=== PATIENT | female | born 1980 | race African-American/Black ===

== ENCOUNTER 2018-11-30 22:12 | Emergency (ER) | payer OTHER ==
[~2018-11-30] VITALS: Ht 172.7 cm; Wt 99.8 kg
--- OUTSIDE RECORDS SUMMARY | 2018-11-30 22:16 | XMS REPORT | Summary of Care ---
Author Organization Unknown Address Unknown Phone Unavailable Encounter MORENA Hobbs(BISHOP) [id number] Date(s): 09/18/13 - 09/18/[address] Discharge Diagnosis: Nausea Discharge Diagnosis: Abdominal pain Discharge Disposition: Home Physician Attending: Timmy Contreras MD Reason for Visit SURGERY ON TUESDAY AND FEELING SICK Vital Signs 1 2 3 Most recent to oldest [Reference Range]: 167.64 cm (09/18/13 10:05 AM) Height 98.8 DegF (09/18/13 5:24 PM) 97.7 DegF (09/18/13 1:35 PM) 98.5 DegF (09/18/13 10:05 AM) Temperature Oral [96.4-99.1 DegF] 112 mmHg (09/18/13 5:24 PM) 122 mmHg (09/18/13 1:35 PM) 149 mmHg *HI* (09/18/13 10:24 AM) Systolic Blood Pressure [90-140 mmHg] 62 mmHg (09/18/13 5:24 PM) 72 mmHg (09/18/13 1:35 PM) 72 mmHg (09/18/13 10:24 AM) Diastolic Blood Pressure [60-90 mmHg] 21 BRMIN *HI* (09/18/13 5:24 PM) 20 BRMIN (09/18/13 1:35 PM) 24 BRMIN *HI* (09/18/13 10:24 AM) Respiratory Rate [14-20 BRMIN] 63 bpm (09/18/13 5:24 PM) 79 bpm (09/18/13 1:35 PM) 90 bpm (09/18/13 10:24 AM) Peripheral Pulse Rate [60-100 bpm] 127.273 kg (09/18/13 10:05 AM) Weight 45.29 m2 (09/18/13 10:05 AM) Body Mass Index Problem List Condition Effective Dates Status Health Status Informant Acid Active reflux(Confirmed) Anxiety(Confirmed) Active Allergies, Adverse Reactions, Alerts Substance Reaction Severity Status NKDA Active Medications Lactated Ringers (Bolus) IV - - 1,000 mL, 1,000 ml/hr, Infuse Over: 1 hr, Route: IV, ONCE, Priority: STAT, Dosin g Weight 127.273 kg, Start date: 09/18/13 10:25:00, Duration: 1 doses or times, Stop date: 09/18/13 10:25:00 Start Date: 09/18/13 Stop Date: 09/18/13 Status: Completed ondansetron 4 mg, Route: IVP, Drug form: INJ, ONCE, Dosing Weight 127.273, kg, Priority: STA T, Start date: 09/18/13 10:25:00, Stop date: 09/18/13 10:25:00 Start Date: 09/18/13 Stop Date: 09/18/13 Status: Completed Sodium Chloride 0.9% (Bolus) IV - - 1,000 mL, 1,000 ml/hr, Infuse Over: 1 hr, Route: IV, 1,000, Drug form: INJ, ONCE , Priority: STAT, Dosing Weight 127.273 kg, Start date: 09/18/13 12:47:00, Durat ion: 1 doses or times, Stop date: 09/18/13 12:47:00 Start Date: 09/18/13 Stop Date: 09/18/13 Status: Completed Results ELECTROLYTES Most recent to 1 2 oldest [Reference Range]: Sodium Lvl [135-145 139 mEq/L mEq/L] (09/18/13 10:20 AM) Potassium Lvl 3.6 mEq/L [3.5-5.1 mEq/L] (09/18/13 10:20 AM) Chloride Lvl [95-109 102 mEq/L mEq/L] (09/18/13 10:20 AM) CO2 [24-32 mEq/L] 24 mEq/L (09/18/13 10:20 AM) AGAP [10.0-20.0 16.6 mEq/L mEq/L] (09/18/13 10:20 AM) CHEM PANEL Most recent to 1 2 oldest [Reference Range]: Creatinine Lvl 0.9 mg/dL [0.5-1.4 mg/dL] (09/18/13 10:20 AM) eGFR 96 mL/min/1.73m2 1 *NA* (09/18/13 10:20 AM) BUN [7-22 mg/dL] 12 mg/dL (09/18/13 10:20 AM) B/C Ratio [6-25] 13 (09/18/13 10:20 AM) Glucose Lvl [70-99 120 mg/dL 2 mg/dL] *HI* (09/18/13 10:20 AM) Total Protein 8.1 g/dL [6.4-8.4 g/dL] (09/18/13 10:20 AM) Albumin Lvl [3.5-5.0 3.7 g/dL g/dL] (09/18/13 10:20 AM) Globulin [2.0-4.0 4.4 g/dL g/dL] *HI* (09/18/13 10:20 AM) A/G Ratio [0.7-1.6] 0.8 (09/18/13 10:20 AM) Calcium Lvl 8.8 mg/dL [8.5-10.5 mg/dL] (09/18/13 10:20 AM) ALT [0-65 unit/L] 70 unit/L *HI* (09/18/13 10:20 AM) AST [0-37 unit/L] 32 unit/L (09/18/13 10:20 AM) Alk Phos [39-136 79 unit/L unit/L] (09/18/13 10:20 AM) Bili Total [0.2-1.3 0.4 mg/dL mg/dL] (09/18/13 10:20 AM) Lactic Acid Lvl 0.6 mMol/L 3.5 mMol/L [0.5-2.2 mMol/L] (09/18/13 3:35 PM) *HI* (09/18/13 10:20 AM) 1Result Comment: The eGFR is calculated using the CKD-EPI formula. In most young, healthy individuals the eGFR will be >90 mL/min/1.73m2. The eGFR declines with age. An eGFR of 60-89 may be normal in some populations, particularly the elderly, for whom the CKD-EPI formula has not been extensively validated. Use of the eGFR is not recommended in the following populations: Individuals with unstable creatinine concentrations, including patients and those with serious co-morbid conditions. Patients with extremes in muscle mass or diet. The data above are obtained from the National Kidney Disease Education Program ( NKDEP) which additionally recommends that when the eGFR is used in patients with extremes of body mass index for purposes of drug dosing, the eGFR should be mul tiplied by the estimated BMI. 2Interpretive Data: Adult reference range values reflect the clinical guidelines of the [place] [employer]. URINE CHEM Most recent to 1 2 oldest [Reference Range]: U Preg [Negative] Negative (09/18/13 11:35 AM) URINE AND STOOL Most recent to 1 2 oldest [Reference Range]: UA Turbidity [Clear] Slight Cloudy (09/18/13 11:35 AM) UA Color [Yellow] Yellow *NA* (09/18/13:35 AM) UA pH [5.0-8.0] 8.0 (09/18/13 11:35 AM) UA Spec Grav 1.015 [<=1.030] (09/18/13 11:35 AM) UA Glucose Negative [Negative] (09/18/13 11:35 AM) UA Blood [Negative] Negative (09/18/13 11:35 AM) UA Ketones Negative [Negative] *NA* (09/18/13 11:35 AM) UA Protein Trace [Negative] *ABN* (09/18/13 11:35 AM) UA Urobilinogen 0.2 EU/dL [0.1-1.0 EU/dL] (09/18/13 11:35 AM) UA Bili [Negative] Negative *NA* (09/18/13 11:35 AM) UA Leuk Est Negative [Negative] (09/18/13 11:35 AM) UA Nitrite Negative [Negative] (09/18/13 11:35 AM) UA WBC [None Seen 0-2 /HPF /HPF] (09/18/13 11:35 AM) UA RBC [0-2 /HPF] 0-2 /HPF (09/18/13 11:35 AM) UA Bacteria [None Occasional /HPF Seen /HPF] (09/18/13 11:35 AM) UA Sq Epi [Few /LPF] Moderate /LPF *ABN* (09/18/13 11:35 AM) UA Amorph Izabella [None Occasional /HPF Seen /HPF] *ABN* (09/18/13 11:35 AM) UA Mucus [None Seen Few /LPF /LPF] (09/18/13 11:35 AM) Micro? Performed (09/18/13 11:35 AM) IMMUNOLOGY Most recent to 1 2 oldest [Reference Range]: CDC HIV 4th GEN Negative [Negative] (09/18/13 10:20 AM) HEMATOLOGY Most recent to 1 2 oldest [Reference Range]: WBC [3.7-10.4 K/CMM] 6.1 K/CMM (09/18/13 10:20 AM) RBC [4.20-5.40 4.02 M/CMM M/CMM] *LOW* (09/18/13 10:20 AM) Hgb [12.0-16.0 g/dL] 11.2 g/dL *LOW* (09/18/13 10:20 AM) Hct [36.0-48.0 %] 33.5 % *LOW* (09/18/13 10:20 AM) MCV [81.0-99.0 fL] 83.3 fL (09/18/13 10:20 AM) MCH [27.0-31.0 pg] 27.8 pg (09/18/13 10:20 AM) MCHC [32.0-36.0 33.3 g/dL g/dL] (09/18/13 10:20 AM) RDW [11.5-14.5 %] 12.2 % (09/18/13 10:20 AM) Platelet [133-450 385 K/CMM K/CMM] (09/18/13 10:20 AM) MPV [7.4-10.4 fL] 8.0 fL (09/18/13 10:20 AM) Segs [45.0-75.0 %] 55.3 % (09/18/13 10:20 AM) Lymphocytes 34.7 % [20.0-40.0 %] (09/18/13 10:20 AM) Monocytes [2.0-12.0 8.7 % %] (09/18/13 10:20 AM) Eosinophils [0.0-4.0 0.9 % %] (09/18/13 10:20 AM) Basophils [0.0-1.0 0.4 % %] (09/18/13 10:20 AM) Segs-Bands # 3.4 K/CMM [1.5-8.1 K/CMM] (09/18/13 10:20 AM) Lymphocytes # 2.1 K/CMM [1.0-5.5 K/CMM] (09/18/13 10:20 AM) Monocytes # [0.0-0.8 0.5 K/CMM K/CMM] (09/18/13 10:20 AM) Eosinophils # 0.1 K/CMM [0.0-0.5 K/CMM] (09/18/13 10:20 AM) Basophils # [0.0-0.2 0.0 K/CMM K/CMM] (09/18/13 10:20 AM) Medications Administered During Your Visit No data available for this section Immunizations No data available for this section Procedures Procedure Type Body Site Date of Procedure Related Diagnosis Repair of diaphragmatic hiatal hernia Social History Social History Type Response Smoking Status Never smoker, Exposure to Tobacco Smoke None, Cigarette Smoking Last 365 Days No, Reg Smoking Cessation Counseling No Assessment and Plan Extracted from: Title: General Surgery Consultation Author: Attila Owens MD Date: 09/18/13 [employer] Surgeon: Aditya Head Referring Physician: Tonya Soriano MD (Emergency Medicine) Date of Consultation: 09/18/13 Time of Consultation: 13:00 Consult Regarding: Abdominal pain Chief Complaint: "Overall sick feeling, abdominal pain" History of Present Illness: 33 y/o AAF w PMH morbid obesity, GERD, anxiety, umbilical hernia s/p laparoscopic umbilical hernia repair with mesh on 09/13/13 presents with abdominal pain. She reports that her pain is located in supraumbilical area and radiates diffusely. She says that the pain started acutely this morning while at rest, described as pressure "like before surgery." Pain worsened with palpation, alleviated by rest . Pain is associated with nausea, lightheadedness/dizziness, mild dyspnea, tingling sensation in her LUE. She reports tolerating regular diet and having normal, nonbloody bowel movements (last BM 09/17/13). She reports symptoms are similar to previous acute anxiety episodes. She has been taking norco and docusate at home.She denies any fevers, vomiting, diarrhea, constipation, melena, dysuria, hematuria, chest pain. Past Medical History: morbid obesity, GERD, anxiety, umbilical hernia s/p laparoscopic umbilical hernia repair with mesh on 09/13/13 Past Surgical History: Laparoscopic umbilical hernia repair with mesh on 09/13/13 Lysis of adhesions Multiple C-sections Allergies:NKDA Medications: [place], docusate Family History: non-contributory Social History: Denies ETOH, tobacco, illicit drugs. Lives with children, children's father. Review of Systems Constitutional symptoms: Denies fever, weight loss. +fatigue HEENT: Denies nasal drainage, sore throat, visual changes Cardiovascular: Denies chest pain, palpitations. Respiratory: Denies cough, wheezing. + difficulty breathing in AM Gastrointestinal: Denies decreased feeding/appetite, vomiting, diarrhea, constipation, blood in the stools. + abdominal pain, + nausea Genitourinary: Denies dysuria, hematuria, decreased or absent urine output Musculoskeletal: Denies joint swelling, tenderness, weakness. Skin: Denies rashes, dryness, itching Neurological: Denies seizures, loss of consciousness, numbness, weakness. + tingling sensation LUE Psychiatric: Denies mood changes Endocrine: Denies changes in body habitus, weight gain Hematologic / lymphatic: Denies bleeding, jaundice, swollen glands Physical Exam Vital Signs: Weight: 127.3 kg VitalsTmp(F)Tmp(C)[id number] 09/18 13:[id number]/72---[id number]------ 09/18 10:24 14972---[id number]------ 09/18 10:0598.536.49vfno37/68------[id number]------ 24 Hr Tmax: 98.5F (36.94c) at 09/18 10:0524 Hr Tmin: 97.7F (36.50c) at 09/18 13:35 General appearance: Well-developed, well-nourished and in no acute distress Skin: Integument intact without rashes HEENT: normocephalic, Pupils equal and reactive to light and accommodation, neck without masses or lymphadenopathy Heart:regular rate and rhythm Vascular exam: 2+ pulses throughout with good capillary refill and no evidence of venous insufficiency Lungs: clear to auscultation bilaterally Abdomen: soft, non-distended without palpable masses. + TTP supraumbilical area. + guarding. No rebound tenderness. No CVA tenderness. Lap incisions c/di Genitourinary: anatomy within normal limits for age Musculoskeletal: no limitation of passive/active motion Neurological: appropriately interactive; CN II-XII intact Pertinent Laboratory Evaluation 36hr Labs 09/18 1135 U PregNegative UA ColorYellow UA TurbiditySlight Cloudy UA Spec Grav1.015 UA pH8.0 UA ProteinTrace UA GlucoseNegative UA KetonesNegative UA BiliNegative UA BloodNegative UA Urobilinogen0.2 UA NitriteNegative UA Leuk EstNegative UA RBC0-2 UA WBC0-2 UA BacteriaOccasional UA MucusFew UA Amorph CrysOccasional UA Sq EpiModerate Micro?Performed Temp Ven37.0 pH Ven7.47 H pCO2 Ven31 L pO2 Ven22 HCO3 Ven23 BE Ven0 O2 Sat Ven42.6 Sodium Ado645 Potassium Lvl3.6 Chloride Epe663 CO224 AGAP16.6 Glucose Qij912 H Creatinine Lvl0.9 BUN12 B/C Ratio13 Total Protein8.1 Albumin Lvl3.7 Globulin4.4 H A/G Ratio0.8 Calcium Lvl8.8 ALT70 H AST32 Alk Phos79 Bili Total0.4 eGFR96 Lactic Acid Lvl3.5 H -> 09/18 1535 Lactic Acid Lvl0.6 WBC6.1 RBC4.02 L Hgb11.2 L Hct33.5 L MCV83.3 MCH27.8 MCHC33.3 RDW12.2 Pmtscabb355 MPV8.0 Segs55.3 Monocytes8.7 Qlkewpydqch31.7 Eosinophils0.9 Basophils0.4 Segs-Bands #3.4 Lymphocytes #2.1 Monocytes #0.5 Eosinophils #0.1 Basophils #0.0 Diagnostic Imaging: none Assessment: 33 y/o AAF w PMH morbid obesity, GERD, anxiety, umbilical hernia s/p laparoscopic umbilical hernia repair with mesh on 09/13/13 presents with abdominal pain, nausea, dizziness, dyspnea, LUE tinging sensation x 1d. Plan: -After further discussion w pt, pt's symptoms similar to previous acute anxiety episodes. -Abdominal pain: Abdominal pain resolving, w/o pain medication. Likely incisional pain, no hernia noted, no signs of infection. Cont norco, docusate. Lactate significantly improved after fluid resuscitation, lactate likely 2/2 dehydration. Okay to discharge if tolerating PO diet. -Pt can f/u as scheduled in clinic w Dr. Head. Please call to confirm appt. Plan discussed with Surgery Attending Dr. Head, who agrees w the plan.
--- OUTSIDE RECORDS SUMMARY | 2018-11-30 22:16 | XMS REPORT | Summary of Care ---
Author Organization Unknown Address Unknown Phone Unavailable Encounter HQ Encntr_beny(BISHOP) [id number] Date(s): 03/01/14 - 03/01/14 [facility] Outpatient Imaging [address] Discharge Disposition: Home Physician Attending: Estefani Pratt MD Reason for Visit 584.09 - ABDMNAL PAIN OT Problem List Condition Effective Dates Status Health Status Informant Acid Active reflux(Confirmed) Anxiety(Confirmed) Active Allergies, Adverse Reactions, Alerts Substance Reaction Severity Status NKDA Active Medications No data available for this section Medications Administered During Your Visit No data available for this section Immunizations No data available for this section Social History Social History Type Response Smoking Status Never smoker, Exposure to Tobacco Smoke None, Cigarette Smoking Last 365 Days No, Reg Smoking Cessation Counseling No
--- OUTSIDE RECORDS SUMMARY | 2018-11-30 22:16 | XMS REPORT | Summary of Care ---
Author Organization Unknown Address Unknown Phone Unavailable Encounter HQ Delano_beny(BISHOP) [id number] Date(s): 09/13/13 - 09/13/13 [facility] [address] Discharge Disposition: Home Physician Attending: Aditya Head Physician Admitting: Aditya Head Physician_Referring: Aditya Head Reason for Visit UMBILICAL HERNIA Vital Signs 1 2 3 Most recent to oldest [Reference Range]: 167.64 cm (09/03/13 2:59 PM) Height 117 mmHg (09/13/13 11:12 AM) 115 mmHg (09/13/13 10:45 AM) 119 mmHg (09/13/13 10:30 AM) Systolic Blood Pressure [90-140 mmHg] 81 mmHg (09/13/13 11:12 AM) 53 mmHg *LOW* (09/13/13 10:45 AM) 60 mmHg (09/13/13 10:30 AM) Diastolic Blood Pressure [60-90 mmHg] 22 BRMIN *HI* (09/13/13 11:12 AM) 34 BRMIN *HI* (09/13/13 10:45 AM) 20 BRMIN (09/13/13 10:30 AM) Respiratory Rate [14-20 BRMIN] 74 bpm (09/13/13 11:12 AM) 67 bpm (09/13/13 7:10 AM) Peripheral Pulse Rate [60-100 bpm] 129.545 kg (09/13/13 7:10 AM) Weight 46.1 m2 (09/13/13 7:10 AM) Body Mass Index Problem List Condition Effective Dates Status Health Status Informant Acid Active reflux(Confirmed) Allergies, Adverse Reactions, Alerts Substance Reaction Severity Status NKDA Active Medications Benadryl 12.5 mg, Route: IV, Drug form: INJ, ONCE, Dosing Weight 129.545, kg, PRN Itching , Start date: 09/13/13 13:03:00, Stop date: 10/13/13 13:02:00, > 40 kg; Pediatric Dosing Special Instructions: > 40 kg; Pediatric Dosing Start Date: 09/13/13 Stop Date: 09/13/13 Status: Completed Benadryl 12.5 mg, Route: IV, Drug form: INJ, ONCE, Dosing Weight 129.545, kg, PRN Itching , Start date: 09/13/13 11:39:00, Stop date: 10/13/13 11:38:00, > 40 kg; Pediatric Dosing Special Instructions: > 40 kg; Pediatric Dosing Start Date: 09/13/13 Stop Date: 09/13/13 Status: Completed bupivacaine liposome 20 mL, Route: InFILtration(local), Drug Form: INJ, ONCE, Start date: 09/13/13 9: 30:00, Stop date: 09/13/13 9:30:00 Notes: (Same as: Exparel) NOT FOR IV use Postoperative analgesia: Infi ltration (local): Dose is based on surgical site and volume required to cover th e area (in general, the maximum total dose is 266 mg).Bunionectomy: 7 mL into th e tissues surrounding the osteotomy and 1 mL into the subcutaneous tissue of the surgical site (total dose=8 mL [106 mg])Hemorrhoidectomy: 30 mL (20 mL vial dil uted with 10 mL NS) divided and administered as 6 injections of 5 mL each (total dose=30 mL [266 mg]) Start Date: 09/13/13 Stop Date: 09/13/13 Status: Completed docusate sodium 100 mg oral capsule 100 mg=0, PO, Daily, Constipation, # 20 cap, 0 Refill(s) Start Date: 09/13/13 Status: Ordered flumazenil 0.2 mg, 2 mL, Route: IVP, Drug form: INJ, PRN, Dosing Weight 129.545, kg, PRN Be nzodiazepine Reversal, Initial dose, Start date: 09/13/13 10:14:00, Duration: 30 day, Stop date: 10/13/13 10:13:00 Notes: (Same as: Romazicon) Start Date: 09/13/13 Stop Date: 09/13/13 Status: Discontinued heparin 5,000 unit, 1 mL, Route: SUB-Q, Drug form: INJ, PRE OP, Start date: 09/12/13 22: 00:00, Duration: 1 day, Stop date: 09/13/13 21:59:00 Notes: porcine heparin Start Date: 09/12/13 Stop Date: 09/13/13 Status: Completed hydromorphone 0.5 mg, 0.25 mL, Route: IVP, Drug form: INJ, Q5Min, Dosing Weight 129.545, kg, P RN Pain Score 7-10, Start date: 09/13/13 10:14:00, Duration: 4 doses or times, S top date: 09/14/13 0:00:00 Notes: Same as: Dilaudid Start Date: 09/13/13 Stop Date: 09/13/13 Status: Discontinued labetalol 10 mg, 2 mL, Route: IVP, Drug form: INJ, Q5Min, Dosing Weight 129.545, kg, PRN E levated BP, Start date: 09/13/13 10:14:00, Duration: 5 doses or times, Stop date : 09/14/13 0:00:00 Start Date: 09/13/13 Stop Date: 09/13/13 Status: Discontinued Mefoxin 2 gm, Route: IVPB, Drug form: INJ, PRE OP, Start date: 09/12/13 22:00:00, Durati on: 1 day, Stop date: 09/13/13 21:59:00 Notes: (Same As: Mefoxin) Start Date: 09/12/13 Stop Date: 09/13/13 Status: Completed naloxone 0.04 mg, 0.1 mL, Route: IVP, Drug form: INJ, Q2MIN, Dosing Weight 129.545, kg, P RN Narcotic Reversal, Start date: 09/13/13 10:14:00, Duration: 8 doses or times, Stop date: 09/14/13 0:00:00 Notes: Same as Narcan Start Date: 09/13/13 Stop Date: 09/13/13 Status: Discontinued [place] 10/325 oral tablet 1 tab, PO, Q6H, for pain, # 30 tab, 0 Refill(s) Start Date: 09/13/13 Status: Ordered Ofirmev 1,000 mg, 100 mL, Route: IV, Drug form: INJ, PRE OP, Start date: 09/12/13 22:00: 00, Duration: 1 day, Stop date: 09/13/13 21:59:00 Notes: Infuse over 15 minutes Do not exceed 4gm/day of acetaminophen Start Date: 09/12/13 Stop Date: 09/14/13 Status: Discontinued ondansetron 4 mg, 2 mL, Route: IVP, Drug form: INJ, ONCE, Dosing Weight 129.545, kg, PRN Ed sea & Vomiting, Start date: 09/13/13 10:14:00 Notes: (Same as: Zofran) Start Date: 09/13/13 Stop Date: 09/13/13 Status: Completed pantoprazole 40 mg, PO, Daily, # 30 tab, 0 Refill(s) Start Date: 09/03/13 Stop Date: 10/03/13 Status: Ordered ranitidine 0 Refill(s) Start Date: 09/03/13 Status: Ordered scopolamine 1 patch, Route: TOP, Drug form: ERFILM, PRE OP, Start date: 09/12/13 22:00:00, D uration: 1 day, Stop date: 09/13/13 21:59:00 Notes: Change patch every 72 hours (Same as: Transderm-Scop) Start Date: 09/12/13 Stop Date: 09/13/13 Status: Completed Results ELECTROLYTES Most recent to 1 oldest [Reference Range]: Sodium Lvl [135-145 144 mEq/L mEq/L] (09/13/13 8:00 AM) Potassium Lvl 3.8 mEq/L [3.5-5.1 mEq/L] (09/13/13 8:00 AM) Chloride Lvl [95-109 110 mEq/L mEq/L] *HI* (09/13/13 8:00 AM) CO2 [24-32 mEq/L] 26 mEq/L (09/13/13 8:00 AM) AGAP [10.0-20.0 11.8 mEq/L mEq/L] (09/13/13 8:00 AM) CHEM PANEL Most recent to 1 oldest [Reference Range]: Creatinine Lvl 0.8 mg/dL [0.5-1.4 mg/dL] (09/13/13 8:00 AM) eGFR 110 mL/min/1.73m2 1 *NA* (09/13/13 8:00 AM) BUN [7-22 mg/dL] 11 mg/dL (09/13/13 8:00 AM) B/C Ratio [6-25] 14 (09/13/13 8:00 AM) Glucose Lvl [70-99 84 mg/dL 2 mg/dL] (09/13/13 8:00 AM) Total Protein 7.7 g/dL [6.4-8.4 g/dL] (09/13/13 8:00 AM) Albumin Lvl [3.5-5.0 3.7 g/dL g/dL] (09/13/13 8:00 AM) Globulin [2.0-4.0 4.0 g/dL g/dL] (09/13/13 8:00 AM) A/G Ratio [0.7-1.6] 0.9 (09/13/13 8:00 AM) Calcium Lvl 8.7 mg/dL [8.5-10.5 mg/dL] (09/13/13 8:00 AM) ALT [0-65 unit/L] 25 unit/L (09/13/13 8:00 AM) AST [0-37 unit/L] 14 unit/L (09/13/13 8:00 AM) Alk Phos [39-136 74 unit/L unit/L] (09/13/13 8:00 AM) Bili Total [0.2-1.3 0.4 mg/dL mg/dL] (09/13/13 8:00 AM) 1Result Comment: The eGFR is calculated [...] values reflect the clinical guidelines of the [place] [employer]. URINE CHEM Most recent to 1 oldest [Reference Range]: U Preg [Negative] Negative (09/13/13 7:36 AM) HEMATOLOGY Most recent to 1 oldest [Reference Range]: WBC [3.7-10.4 K/CMM] 5.5 K/CMM (09/13/13 7:37 AM) RBC [4.20-5.40 3.96 M/CMM M/CMM] *LOW* (09/13/13 7:37 AM) Hgb [12.0-16.0 g/dL] 11.2 g/dL *LOW* (09/13/13 7:37 AM) Hct [36.0-48.0 %] 33.0 % *LOW* (09/13/13 7:37 AM) MCV [81.0-99.0 fL] 83.4 fL (09/13/13 7:37 AM) MCH [27.0-31.0 pg] 28.2 pg (09/13/13 7:37 AM) MCHC [32.0-36.0 33.9 g/dL g/dL] (09/13/13 7:37 AM) RDW [11.5-14.5 %] 12.4 % (09/13/13 7:37 AM) Platelet [133-450 330 K/CMM K/CMM] (09/13/13 7:37 AM) MPV [7.4-10.4 fL] 8.0 fL (09/13/13 7:37 AM) Segs [45.0-75.0 %] 41.5 % *LOW* (09/13/13 7:37 AM) Lymphocytes 46.8 % [20.0-40.0 %] *HI* (09/13/13 7:37 AM) Monocytes [2.0-12.0 9.7 % %] (09/13/13 7:37 AM) Eosinophils [0.0-4.0 1.4 % %] (4/17/14 7:37 AM) Basophils [0.0-1.0 0.6 % %] (09/13/13 7:37 AM) Segs-Bands # 2.3 K/CMM [1.5-8.1 K/CMM] (09/13/13 7:37 AM) Lymphocytes # 2.6 K/CMM [1.0-5.5 K/CMM] (09/13/13 7:37 AM) Monocytes # [0.0-0.8 0.5 K/CMM K/CMM] (09/13/13 7:37 AM) Eosinophils # 0.1 K/CMM [0.0-0.5 K/CMM] (09/13/13 7:37 AM) Basophils # [0.0-0.2 0.0 K/CMM K/CMM] (09/13/13 7:37 AM) Medications Administered During Your Visit No data available for this section Immunizations No data available for this section
--- OUTSIDE RECORDS SUMMARY | 2018-11-30 22:16 | XMS REPORT | Continuity of Care Document ---
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 Information [employer] Unavailable Unavailable Problems Problem Status Onset Date Classification Date Reported Comments Source Z01.818 - ENCOUNTER FOR OTHER PREPROCEDU Active 09/15/2016 [facility] Discharge Diagnosis: Nausea 09/18/2013 09/20/2013 [facility] Discharge Diagnosis: Abdominal pain 09/18/2013 09/20/2013 [facility] SURGERY ON TUESDAY AND FEELING SICK Active 09/18/2013 [facility] UMBILICAL HERNIA Active 08/24/2013 [facility] Acid reflux Active Problem 09/18/2016 [facility], [facility] Anxiety Active Problem 09/18/2016 [facility], ERROL [facility] UMBILICAL HERNIA Active [facility] Medications Medication Details Route Status Patient Instructions Ordering Provider Order Date Source Sodium Chloride 0.154 MEQ/ML Injectable Solution 1,000 mL, 1,000 ml/hr, Infuse Over: 1 hr, Route: IV, 1,000, Drug form: INJ, ONCE, Priority: STAT, Dosing Weight 127.273 kg, Start date: 09/18/13 12:47:00, Duration: 1 doses or times, Stop date: 09/18/13 12:47:00 Inactive 09/18/2013 [facility] Calcium Chloride 0.0014 MEQ/ML / Potassium Chloride 0.004 MEQ/ML / Sodium Chloride 0.103 MEQ/ML / Sodium Lactate 0.028 MEQ/ML Injectable Solution 1,000 mL, 1,000 ml/hr, Infuse Over: 1 hr, Route: IV, ONCE, Priority: STAT, Dosing Weight 127.273 kg, Start date: 09/18/13 10:25:00, Duration: 1 doses or times, Stop date: 09/18/13 10:25:00 Inactive 09/18/2013 [facility] Ondansetron 4 mg, Route: IVP, Drug form: INJ, ONCE, Dosing Weight 127.273, kg, Priority: STAT, Start date: 09/18/13 10:25:00, Stop date: 09/18/13 10:25:00 Inactive 09/18/2013 [facility] Benadryl 12.5 mg, Route: IV, Drug form: INJ, ONCE, Dosing Weight 129.545, kg, PRN Itching, Start date: 09/13/13 13:03:00, Stop date: 10/13/13 13:02:00, > 40 kg; Pediatric DosingSpecial Instructions: > 40 kg; Pediatric Dosing Inactive 09/13/2013 [facility] Benadryl 12.5 mg, Route: IV, Drug form: INJ, ONCE, Dosing Weight 129.545, kg, PRN Itching, Start date: 09/13/13 11:39:00, Stop date: 10/13/13 11:38:00, > 40 kg; Pediatric DosingSpecial Instructions: > 40 kg; Pediatric Dosing Inactive 09/13/2013 [facility] Ondansetron 4 mg, 2 mL, Route: IVP, Drug form: INJ, ONCE, Dosing Weight 129.545, kg, PRN Nausea & Vomiting, Start date: 09/13/13 10:14:00Notes: (Same as: Zofran) Inactive 09/13/2013 [facility] Flumazenil 0.2 mg, 2 mL, Route: IVP, Drug form: INJ, PRN, Dosing Weight 129.545, kg, PRN Benzodiazepine Reversal, Initial dose, Start date: 09/13/13 10:14:00, Duration: 30 day, Stop date: 10/13/13 10:13:00Notes: (Same as: Romazicon) Inactive 09/13/2013 [facility] Hydromorphone 0.5 mg, 0.25 mL, Route: IVP, Drug form: INJ, Q5Min, Dosing Weight 129.545, kg, PRN Pain Score 7-10, Start date: 09/13/13 10:14:00, Duration: 4 doses or times, Stop date: 09/14/13 0:00:00Notes: Same as: Dilaudid Inactive 09/13/2013 [facility] Naloxone 0.04 mg, 0.1 mL, Route: IVP, Drug form: INJ, Q2MIN, Dosing Weight 129.545, kg, PRN Narcotic Reversal, Start date: 09/13/13 10:14:00, Duration: 8 doses or times, Stop date: 09/14/13 0:00:00Notes: Same as Narcan Inactive 09/13/2013 [facility] Labetalol 10 mg, 2 mL, Route: IVP, Drug form: INJ, Q5Min, Dosing Weight 129.545, kg, PRN Elevated BP, Start date: 09/13/13 10:14:00, Duration: 5 doses or times, Stop date: 09/14/13 0:00:00 Inactive 09/13/2013 [facility] Docusate Sodium 100 MG Oral Capsule 100 mg=0, PO, Daily, Constipation, # 20 cap, 0 Refill(s) Active 09/13/2013 [facility] Acetaminophen 325 MG / Hydrocodone Bitartrate 10 MG Oral Tablet [[place] 10/325] 1 tab, PO, Q6H, for pain, # 30 tab, 0 Refill(s) Active 09/13/2013 [facility] bupivacaine liposome 20 mL, Route: InFILtration(local), Drug Form: INJ, ONCE, Start date: 09/13/13 9:30:00, Stop date: 09/13/13 9:30:00Notes: (Same as: Exparel) NOT FOR IV use Postoperative analgesia: Infiltration (local): Dose is based on surgical site and volume required to cover the area (in general, the maximum total dose is 266 mg). Bunionectomy: 7 mL into the tissues surrounding the osteotomy and 1 mL into the subcutaneous tissue of the surgical site (total dose=8 mL [106 mg]) Hemorrhoidectomy: 30 mL (20 mL vial diluted with 10 mL NS) divided and administered as 6 injections of 5 mL each (total dose=30 mL [266 mg]) Inactive 09/13/2013 [facility] scopolamine 1 patch, Route: TOP, Drug form: ERFILM, PRE OP, Start date: 09/12/13 22:00:00, Duration: 1 day, Stop date: 09/13/13 21:59:00Notes: Change patch every 72 hours (Same as: Transderm-Scop) No Longer Active 09/13/2013 [facility] heparin 5,000 unit, 1 mL, Route: SUB-Q, Drug form: INJ, PRE OP, Start date: 09/12/13 22:00:00, Duration: 1 day, Stop date: 09/13/13 21:59:00Notes: porcine heparin No Longer Active 09/13/2013 [facility] Mefoxin 2 gm, Route: IVPB, Drug form: INJ, PRE OP, Start date: 09/12/13 22:00:00, Duration: 1 day, Stop date: 09/13/13 21:59:00Notes: (Same As: Mefoxin) No Longer Active 09/13/2013 [facility] Ofirmev 1,000 mg, 100 mL, Route: IV, Drug form: INJ, PRE OP, Start date: 09/12/13 22:00:00, Duration: 1 day, Stop date: 09/13/13 21:59:00Notes: Infuse over 15 minutes Do not exceed 4gm/day of acetaminophen No Longer Active 09/13/2013 [facility] Ranitidine 0 Refill(s) Active 09/03/2013 [facility] pantoprazole 40 mg, PO, Daily, # 30 tab, 0 Refill(s) Active 09/03/2013 [facility] Allergies, Adverse Reactions, Alerts No Known Medication Allergies Immunizations No Data Provided for This Section Results Order Name Results Value Reference Range Date Interpretation Comments Source CHEM PANEL Lactic Acid Lvl 0.6 0.5 - 2.2 09/18/2013 [facility] URINE AND STOOL UA Leuk Est Negative (09/18/13 11:35 AM) Negative 09/18/2013 [facility] URINE AND STOOL UA WBC 0-2 /HPF None Seen /HPF 09/18/2013 [facility] URINE AND STOOL UA Sq Epi Moderate /LPF Few /LPF 09/18/2013 [facility] URINE AND STOOL Micro? Performed (09/18/13 11:35 AM) 09/18/2013 [facility] URINE AND STOOL UA RBC 0-2 /HPF 0 - 2 09/18/2013 [facility] URINE AND STOOL UA Amorph Izabella Occasional /HPF None Seen /HPF 09/18/2013 [facility] URINE AND STOOL UA Mucus Few /LPF None Seen /LPF 09/18/2013 [facility] URINE AND STOOL UA Bacteria Occasional /HPF None Seen /HPF 09/18/2013 [facility] URINE AND STOOL UA Protein Trace *ABN* (09/18/13 11:35 AM) Negative 09/18/2013 [facility] URINE AND STOOL UA Ketones Negative *NA* (09/18/13 11:35 AM) Negative 09/18/2013 [facility] URINE AND STOOL UA Nitrite Negative (09/18/13 11:35 AM) Negative 09/18/2013 [facility] URINE AND STOOL UA Bili Negative *NA* (09/18/13 11:35 AM) Negative 09/18/2013 [facility] URINE AND STOOL UA Blood Negative (09/18/13 11:35 AM) Negative 09/18/2013 [facility] URINE AND STOOL UA Glucose Negative (09/18/13 11:35 AM) Negative 09/18/2013 [facility] URINE AND STOOL UA Urobilinogen 0.2 0.1 - 1.0 09/18/2013 [facility] URINE AND STOOL UA pH 8.0 5.0 - 8.0 09/18/2013 [facility] URINE AND STOOL UA Color Yellow *NA* (09/18/13 11:35 AM) Yellow 09/18/2013 [facility] URINE AND STOOL UA Spec Grav 1.015 <=1.030 09/18/2013 [facility] URINE AND STOOL UA Turbidity Slight Cloudy (09/18/13 11:35 AM) Clear 09/18/2013 [facility] URINE CHEM U Preg Negative (09/18/13 11:35 AM) Negative 09/18/2013 [facility] IMMUNOLOGY CDC HIV 4th GEN Negative (09/18/13 10:20 AM) Negative 09/18/2013 [facility] CHEM PANEL ALT 70 0 - 65 09/18/2013 [facility] CHEM PANEL AST 32 0 - 37 09/18/2013 [facility] CHEM PANEL Total Protein 8.1 6.4 - 8.4 09/18/2013 [facility] CHEM PANEL Alk Phos 79 39 - 136 09/18/2013 [facility] CHEM PANEL Albumin Lvl 3.7 3.5 - 5.0 09/18/2013 [facility] CHEM PANEL Bili Total 0.4 0.2 - 1.3 09/18/2013 [facility] CHEM PANEL eGFR 96 09/18/2013 <sup>1</sup>Result Comment: The eGFR is calculated using the CKD-EPI formula. In most young, healthy individuals the eGFR will be >90 mL/min/1.73m2. The eGFR declines with age. An eGFR of 60-89 may be normal in some populations, particularly the elderly, for whom the CKD-EPI formula has not been extensively validated. Use of the eGFR is not recommended in the following populations:& lt;br/>
Individuals with unstable creatinine concentrations, including patients and those with serious co-morbid conditions.

Patients with extremes in muscle mass or diet.

The data above are obtained from the National Kidney Disease Education Program (NKDEP) which additionally recommends that when the eGFR is used in patients with extremes of body mass index for purposes of drug dosing, the eGFR should be multiplied by the estimated BMI. [facility] CHEM PANEL BUN 12 7 - 22 09/18/2013 [facility] CHEM PANEL Glucose Lvl 120 70 - 99 09/18/2013 <sup>2</sup>Interpretive Data: Adult reference range values reflect the clinical guidelines
of the [place] [employer]. [facility] CHEM PANEL Sodium Lvl 139 135 - 145 09/18/2013 [facility] CHEM PANEL Creatinine Lvl 0.9 0.5 - 1.4 09/18/2013 [facility] CHEM PANEL Chloride Lvl 102 95 - 109 09/18/2013 [facility] CHEM PANEL Potassium Lvl 3.6 3.5 - 5.1 09/18/2013 [facility] CHEM PANEL Calcium Lvl 8.8 8.5 - 10.5 09/18/2013 [facility] CHEM PANEL CO2 24 24 - 32 09/18/2013 [facility] CHEM PANEL Globulin 4.4 2.0 - 4.0 09/18/2013 [facility] CHEM PANEL A/G Ratio 0.8 0.7 - 1.6 09/18/2013 [facility] CHEM PANEL AGAP 16.6 10.0 - 20.0 09/18/2013 [facility] CHEM PANEL B/C Ratio 13 6 - 25 09/18/2013 [facility] CHEM PANEL Lactic Acid Lvl 3.5 0.5 - 2.2 09/18/2013 [facility] HEMATOLOGY Basophils # 0.0 0.0 - 0.2 09/18/2013 [facility] HEMATOLOGY Basophils 0.4 0.0 - 1.0 09/18/2013 [facility] HEMATOLOGY Segs-Bands # 3.4 1.5 - 8.1 09/18/2013 [facility] HEMATOLOGY Eosinophils # 0.1 0.0 - 0.5 09/18/2013 [facility] HEMATOLOGY Monocytes 8.7 2.0 - 12.0 09/18/2013 [facility] HEMATOLOGY Lymphocytes # 2.1 1.0 - 5.5 09/18/2013 [facility] HEMATOLOGY Monocytes # 0.5 0.0 - 0.8 09/18/2013 [facility] HEMATOLOGY Eosinophils 0.9 0.0 - 4.0 09/18/2013 [facility] HEMATOLOGY Lymphocytes 34.7 20.0 - 40.0 09/18/2013 [facility] HEMATOLOGY Segs 55.3 45.0 - 75.0 09/18/2013 [facility] HEMATOLOGY RDW 12.2 11.5 - 14.5 09/18/2013 [facility] HEMATOLOGY Platelet 385 133 - 450 09/18/2013 [facility] HEMATOLOGY MCHC 33.3 32.0 - 36.0 09/18/2013 [facility] HEMATOLOGY MCH 27.8 27.0 - 31.0 09/18/2013 [facility] HEMATOLOGY MPV 8.0 7.4 - 10.4 09/18/2013 [facility] HEMATOLOGY WBC 6.1 3.7 - 10.4 09/18/2013 [facility] HEMATOLOGY MCV 83.3 81.0 - 99.0 09/18/2013 [facility] HEMATOLOGY Hct 33.5 36.0 - 48.0 09/18/2013 [facility] HEMATOLOGY RBC 4.02 4.20 - 5.40 09/18/2013 [facility] HEMATOLOGY Hgb 11.2 12.0 - 16.0 09/18/2013 [facility] CHEM PANEL eGFR 110 09/13/2013 <sup>1</sup>Result Comment: The eGFR is calculated using the CKD-EPI formula. In most young, healthy individuals the eGFR will be >90 mL/min/1.73m2. The eGFR declines with age. An eGFR of 60-89 may be normal in some populations, particularly the elderly, for whom the CKD-EPI formula has not been extensively validated. Use of the eGFR is not recommended in the following populations:& lt;br/>
Individuals with unstable creatinine concentrations, including patients and those with serious co-morbid conditions.

Patients with extremes in muscle mass or diet.

The data above are obtained from the National Kidney Disease Education Program (NKDEP) which additionally recommends that when the eGFR is used in patients with extremes of body mass index for purposes of drug dosing, the eGFR should be multiplied by the estimated BMI. [facility] CHEM PANEL A/G Ratio 0.9 0.7 - 1.6 09/13/2013 [facility] CHEM PANEL Globulin 4.0 2.0 - 4.0 09/13/2013 [facility] CHEM PANEL Total Protein 7.7 6.4 - 8.4 09/13/2013 [facility] CHEM PANEL Bili Total 0.4 0.2 - 1.3 09/13/2013 [facility] CHEM PANEL AGAP 11.8 10.0 - 20.0 09/13/2013 [facility] CHEM PANEL AST 14 0 - 37 09/13/2013 [facility] CHEM PANEL B/C Ratio 14 6 - 25 09/13/2013 [facility] CHEM PANEL Chloride Lvl 110 95 - 109 09/13/2013 [facility] CHEM PANEL Potassium Lvl 3.8 3.5 - 5.1 09/13/2013 [facility] CHEM PANEL CO2 26 24 - 32 09/13/2013 [facility] CHEM PANEL Calcium Lvl 8.7 8.5 - 10.5 09/13/2013 [facility] CHEM PANEL Creatinine Lvl 0.8 0.5 - 1.4 09/13/2013 [facility] CHEM PANEL BUN 11 7 - 22 09/13/2013 [facility] CHEM PANEL Sodium Lvl 144 135 - 145 09/13/2013 [facility] CHEM PANEL Albumin Lvl 3.7 3.5 - 5.0 09/13/2013 [facility] CHEM PANEL Glucose Lvl 84 70 - 99 09/13/2013 <sup>2</sup>Interpretive Data: Adult reference range values reflect the clinical guidelines
of the [place] [employer]. [facility] CHEM PANEL Alk Phos 74 39 - 136 09/13/2013 [facility] CHEM PANEL ALT 25 0 - 65 09/13/2013 [facility] HEMATOLOGY Lymphocytes 46.8 20.0 - 40.0 09/13/2013 [facility] HEMATOLOGY Basophils 0.6 0.0 - 1.0 09/13/2013 [facility] HEMATOLOGY Eosinophils 1.4 0.0 - 4.0 09/13/2013 [facility] HEMATOLOGY Monocytes 9.7 2.0 - 12.0 09/13/2013 [facility] HEMATOLOGY Segs 41.5 45.0 - 75.0 09/13/2013 [facility] HEMATOLOGY Monocytes # 0.5 0.0 - 0.8 09/13/2013 [facility] HEMATOLOGY Eosinophils # 0.1 0.0 - 0.5 09/13/2013 [facility] HEMATOLOGY Basophils # 0.0 0.0 - 0.2 09/13/2013 [facility] HEMATOLOGY Lymphocytes # 2.6 1.0 - 5.5 09/13/2013 [facility] HEMATOLOGY Segs-Bands # 2.3 1.5 - 8.1 09/13/2013 [facility] HEMATOLOGY Platelet 330 133 - 450 09/13/2013 [facility] HEMATOLOGY RDW 12.4 11.5 - 14.5 09/13/2013 [facility] HEMATOLOGY MPV 8.0 7.4 - 10.4 09/13/2013 [facility] HEMATOLOGY MCHC 33.9 32.0 - 36.0 09/13/2013 [facility] HEMATOLOGY MCV 83.4 81.0 - 99.0 09/13/2013 [facility] HEMATOLOGY Hct 33.0 36.0 - 48.0 09/13/2013 [facility] HEMATOLOGY Hgb 11.2 12.0 - 16.0 09/13/2013 [facility] HEMATOLOGY MCH 28.2 27.0 - 31.0 09/13/2013 [facility] HEMATOLOGY RBC 3.96 4.20 - 5.40 09/13/2013 [facility] HEMATOLOGY WBC 5.5 3.7 - 10.4 09/13/2013 [facility] URINE CHEM U Preg Negative (09/13/13 7:36 AM) Negative 09/13/2013 [facility] Pathology Reports No Data Provided for This Section Diagnostic Reports Report Value Date Source Chest 2 views DX EXAM: XR CHEST 2 VIEWS DATE: 09/15/2016 2:18 PM CDT INDICATION: Z01.818 Encounter for other preprocedural examination COMPARISON: None. TECHNIQUE: PA and lateral chest radiographs FINDINGS: Lungs are symmetrically well expanded. No pulmonary or pleural-based abnormality is identified. The cardiomediastinal silhouette is normal. No acute osseous abnormality is identified. IMPRESSION: No acute cardiopulmonary abnormality. 09/15/2016 [facility] Abdomen/Pelvis w IV contrast CT REASON FOR EXAM: Abdominal pain. COMPARISON: Pelvic ultrasound 06/19/2013. TECHNIQUE: Enhanced axial helical CT images of the abdomen and pelvis were performed with IV and oral contrast. Reformatted coronal and sagittal images were reviewed. ABDOMEN / PELVIC CT FINDINGS: The visualized lung bases are unremarkable. The heart size is upper limits of normal. The liver, gallbladder, pancreas, spleen, adrenal glands and kidneys are unremarkable. There is a 1.2 cm accessory spleen. No hydronephrosis or pyelonephritis. There is a nonobstructive bowel gas pattern. The stomach is poorly distended limiting evaluation of the gastric adkins. There is no demonstrable bowel abnormality. The appendix is normal. There are subcentimeter mesenteric lymph nodes in the right lower abdomen There is no free intraperitoneal air or ascites. There are surgical clips in the right pelvis. The CT appearance of the uterus, ovaries and poorly distended urinary bladder are unremarkable. There are bilateral inguinal lymph nodes the largest measuring 24 x 10 mm on the right and 24 x 8 mm on the left. There is an 18 x 12 mm distal right external iliac chain lymph node. Calcified pelvic phleboliths. No demonstrable pelvic mass. There are small retroperitoneal lymph nodes the largest measuring 12 x 9 mm. The caliber of the abdominal aorta is within normal limits. There is a small umbilical hernia containing fat measuring a maximal width of approximately 2.4 cm. There are mild degenerative changes of the visualized lower thoracic spine. There is bilateral spondylolysis at L5. There are degenerative changes of the pubic symphysis. There is a subcentimeter cyst in the marrow of the medial right ilium. IMPRESSION: 1. There is no demonstrable acute abdominal or pelvic abnormality. 2. Small nonspecific retroperitoneal and pelvic lymph nodes. 3. Small umbilical hernia containing fat. 4. Osseous findings as described above. SL: 14 03/01/2014 [facility] Consultation Notes No Data Provided for This Section Discharge Summaries No Data Provided for This Section History and Physicals No Data Provided for This Section Vital Signs Vital Sign Value Date Comments Source Heart Rate 63 09/18/2013 [facility] Respitory Rate 21 09/18/2013 [facility] Systolic (mm Hg) 112 09/18/2013 [facility] Diastolic (mm Hg) 62 09/18/2013 [facility] Temperature Oral (F) 98.8 F 09/18/2013 [facility] Diastolic (mm Hg) 72 09/18/2013 [facility] Respitory Rate 20 09/18/2013 [facility] Systolic (mm Hg) 122 09/18/2013 [facility] Temperature Oral (F) 97.7 F 09/18/2013 [facility] Heart Rate 79 09/18/2013 [facility] Respitory Rate 24 09/18/2013 [facility] Systolic (mm Hg) 149 09/18/2013 [facility] Diastolic (mm Hg) 72 09/18/2013 [facility] Heart Rate 90 09/18/2013 [facility] Height 167.64 cm 09/18/2013 [facility] BMI Calculated 45.29 09/18/2013 [facility] Weight 127.273 09/18/2013 [facility] Temperature Oral (F) 98.5 F 09/18/2013 [facility] Systolic (mm Hg) 117 09/13/2013 [facility] Respitory Rate 22 09/13/2013 [facility] Heart Rate 74 09/13/2013 [facility] Diastolic (mm Hg) 81 09/13/2013 [facility] Systolic (mm Hg) 115 09/13/2013 [facility] Diastolic (mm Hg) 53 09/13/2013 [facility] Respitory Rate 34 09/13/2013 [facility] Respitory Rate 20 09/13/2013 [facility] Diastolic (mm Hg) 60 09/13/2013 [facility] Systolic (mm Hg) 119 09/13/2013 [facility] BMI Calculated 46.1 09/13/2013 [facility] Weight 129.545 09/13/2013 [facility] Heart Rate 67 09/13/2013 [facility] Height 167.64 cm 09/03/2013 [facility] Encounters Location Location Details Encounter Type Encounter Number Reason For Visit Attending Provider ADM Date DC Date Status Source [facility] OBS Day Surgery [id number] Aditya Adilene 09/13/2013 09/14/2013 [facility] [id number] Timmy Contreras 09/18/2013 09/18/2013 [facility] [place] [facility] [id number] Estefani Pratt 03/01/2014 [facility]02[facility] [place] [facility] [id number] Vish Lopez 09/15/2016 09/16/2016 [facility] Procedures Procedure Code Date Perfomer Comments Source Repair of diaphragmatic hiatal hernia [id number] [facility] Repair of diaphragmatic hiatal hernia [id number] [facility] Assessment and Plan Assessment and Plan Date Source Extracted from:Title: General Surgery Consultation Author: Attila Owens MD Date: 09/18/13 [employer] Surgeon: Aditya Head Referring Physician: Tonya Soriano [...] surgery." Pain worsened with palpation, alleviated by rest. Pain is associated with nausea, lightheadedness/dizziness, mild [...] Lysis of adhesions Multiple C-sections Allergies:NKDA Medications: [place], docusate Family History: non-contributory Social History: Denies [...] Physical Exam Vital Signs: Weight: 127.3 kg Vitals Tmp(F) Tmp(C) Ttype BP MAP Pulse RR SpO2 FIO2 ETCO2 09/18 13:35 97.7 36.50 oral 122/72 --- 79 20 100 --- --- 09/18 10:24 ---- ---- ---- 149/72 --- 90 24 100 --- --- 09/18 10:05 98.5 36.94 oral 82/68 --- --- 22 100 --- --- 24 Hr Tmax: 98.5F (36.94c) at 09/18 10:05 24 Hr Tmin: 97.7F (36.50c) at 09/18 13:35 [...] Laboratory Evaluation 36hr Labs 09/18 1135 U Preg Negative UA Color Yellow UA Turbidity Slight Cloudy UA Spec Grav 1.015 UA pH 8.0 UA Protein Trace UA Glucose Negative UA Ketones Negative UA Bili Negative UA Blood Negative UA Urobilinogen 0.2 UA Nitrite Negative UA Leuk Est Negative UA RBC 0-2 UA WBC 0-2 UA Bacteria Occasional UA Mucus Few UA Amorph Izabella Occasional UA Sq Epi Moderate Micro? Performed Temp Trevor 37.0 pH Trevor 7.47 H pCO2 Trevor 31 L pO2 Trevor 22 HCO3 Trevor 23 BE Trevor 0 O2 Sat Trevor 42.6 Sodium Lvl 139 Potassium Lvl 3.6 Chloride Lvl 102 CO2 24 AGAP 16.6 Glucose Lvl 120 H Creatinine Lvl 0.9 BUN 12 B/C Ratio 13 Total Protein 8.1 Albumin Lvl 3.7 Globulin 4.4 H A/G Ratio 0.8 Calcium Lvl 8.8 ALT 70 H AST 32 Alk Phos 79 Bili Total 0.4 eGFR 96 Lactic Acid Lvl 3.5 H -> 09/18 1535 Lactic Acid Lvl 0.6 WBC 6.1 RBC 4.02 L Hgb 11.2 L Hct 33.5 L MCV 83.3 MCH 27.8 MCHC 33.3 RDW 12.2 Platelet 385 MPV 8.0 Segs 55.3 Monocytes 8.7 Lymphocytes 34.7 Eosinophils 0.9 Basophils 0.4 Segs-Bands # 3.4 Lymphocytes # 2.1 Monocytes # 0.5 Eosinophils # 0.1 Basophils # 0.0 Diagnostic Imaging: none Assessment: 33 y/o AAF [...] Dr. Head, who agrees w the plan. 09/18/2013 [facility] Plan of Care No Data Provided for This Section Social History Social History Date Source Social History TypeResponse Smoking Status Never smoker, Exposure to Tobacco Smoke None, Cigarette Smoking Last 365 Days No, Reg Smoking Cessation Counseling No 09/18/2013 [facility] Social History TypeResponse Smoking Status Never smoker; Exposure to Tobacco Smoke None; Cigarette Smoking Last 365 Days No; Reg Smoking Cessation Counseling No 09/18/2013 [facility] Social History TypeResponse Smoking Status Never smoker, Exposure to Tobacco Smoke None, Cigarette Smoking Last 365 Days No, Reg Smoking Cessation Counseling No 09/18/2013 [facility] Family History No Data Provided for This Section Advance Directives No Data Provided for This Section Functional Status No Data Provided for This Section
== END 2018-11-30 22:44 | disposition home or self-care (01) ==
LOC: FSED 22:12
DX: R05 Cough (principal); J01.10 Acute frontal sinusitis, unspecified
CPT/HCPCS: 99282